=== PATIENT | female | born 1930 | race Hispanic/Latino ===

== ENCOUNTER 2020-12-09 05:28 | Observation (INO) | payer MEDICARE ==
[2020-12-09 05:53] LABS: Protime INR 1.05
[2020-12-09 05:54] LABS: Absolute Lymphocytes (CBC) 1.8 K/uL (0.7-4.9); Basophils % 1.3 % (0-1.3); Hematocrit 35.8 % (36.0-45.0); Lymphocytes % 42.6 % (15.3-44.8); MPV 8.2 fL (7.6-11.3); RBC Red Blood Cell Count 4.18 M/uL (3.86-4.86)
[2020-12-09] MEDS ORDERED: NA CHLORIDE 0.9% 1,000 ML ONE (05:59)
[2020-12-09] MEDS ORDERED: AMLODIPINE 5 MG TAB ONE ×2 (06:06→08:48)
[2020-12-09 06:07] LABS: ALT/SGPT 24 U/L (12-78); AST/SGOT 16 U/L (15-37); Albumin 3.3 g/dL (3.4-5.0); Alkaline Phosphatase 105 U/L (45-117); BUN Blood Urea Nitrogen 18 mg/dL (7-18); Bicarbonate 24 mmol/L (21-32); Bilirubin Direct 0.4 mg/dL (0-0.2); Bilirubin Total 1.3 mg/dL (0.2-1.0); Glucose Level 110 mg/dL (74-106); Magnesium 2.3 mg/dL (1.8-2.4); NT PRO-BNP 638 pg/mL (<450); Potassium 3.8 mmol/L (3.5-5.1); Protein, Total 7.3 g/dL (6.4-8.2); Sodium Level 142 mmol/L (136-145); Troponin (Emerg Dept Use Only) < 0.02 ng/mL (0.0-0.045)
--- NOTE | 2020-12-09 06:20 | ER ---
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 Coronavirus screen: Client denies travel out of the [place] in the last 14 days. Ebola Screen: Patient negative for fever greater than or equal to 101.5 degrees Fahrenheit, and additional compatible Ebola Virus Disease symptoms Patient denies exposure to infectious person. Patient denies travel to an Ebola-affected area in the 21 days before illness onset. No symptoms or risks identified at this time. Initial Sepsis Screen: Does the patient meet any 2 criteria? No. Patient's initial sepsis screen is negative. Does the patient have a suspected source of infection? No. Patient's initial sepsis screen is negative. Risk Assessment: Do you want to hurt yourself or someone else? Patient reports no desire to harm self or others. Onset of symptoms was December 09, 2020. 05:30 Method Of Arrival: EMS: [facility] em 05:30 Acuity: TE 2 em Historical: - Allergies: 05:29 Codeine; ss - Home Meds: 05:36 metoprolol tartrate 100 mg Oral tab [Active]; clonidine HCl 0.1 mg Oral tab [Active]; em - PMHx: 05:33 Hypertension; em - PSHx: 05:29 shoulder sx; Cholecystectomy; Thyroidectomy; ss - Immunization history:: Adult Immunizations up to date. - Social history:: Smoking status: Patient denies any tobacco usage or history of. Screenin:30 Abuse screen: Denies threats or abuse. Denies injuries from another. Nutritional ss screening: No deficits noted. Tuberculosis screening: Never had TB. Fall Risk None identified. Assessment: 05:30 General: Appears in no apparent distress. comfortable, Behavior is calm, cooperative, ss Denies fever, feeling ill, fatigue, chills. Pain: Complains of pain in epigastric area Pain currently is 0 out of 10 on a pain scale. at worst was 3 out of 10 on a pain scale. Neuro: Level of Consciousness is awake, alert, obeys commands, Oriented to person, place, time, situation, Belting Cutter are equal bilaterally Moves all extremities. Full function Speech is normal, Facial symmetry appears normal. Cardiovascular: Capillary refill < 3 seconds is brisk in bilateral fingers. Respiratory: Airway is patent Respiratory effort is even, unlabored, Respiratory pattern is regular, symmetrical. GI: Patient currently denies abdominal pain, diarrhea, nausea, vomiting. EENT: Nares Oral mucosa is moist. Derm: Skin is intact, is fragile, is thin, Skin is dry, Skin is pink, warm \T\ dry. normal. Musculoskeletal: Circulation, motion, and sensation intact. Range of motion: intact in all extremities. 06:25 Reassessment: Pt is aware of admission for further evaluation. Daughter and son remain ss at bedside. Call light remains within reach. Awaiting COVID results prior to receiving room assignment from manager warehouse. PT has no complaints at this time. 11:00 Reassessment: Tried to call report to 2nd floor. Room is not ready for patient yet. ld1 12:11 Reassessment: Tried to call report to 2nd floor. Room is not ready for patient yet. ld1 Vital Signs: 05:29 BP 181 / 78; Pulse 68; Resp 16; Temp 97.7(TE); Pulse Ox 98% on R/A; Weight 57.15 kg; ss Height 5 ft. 0 in. (152.40 cm); Pain 0/10; 05:30 BP 158 / 65; Pulse 57; Resp 17; Pulse Ox 100% ; Pain 0/10; ss 05:42 BP 155 / 76; Pulse 69; Resp 17; Pulse Ox 98% ; rr5 06:34 BP 158 / 76; Pulse 60; Resp 16; Pulse Ox 99% ; rr5 05:29 Body Mass Index 24.61 (57.15 kg, 152.40 cm) ED Course: 05:29 Patient arrived in ED. 05:30 Patient has correct armband on for positive identification. Placed in gown. Bed in low ss position. Call light in reach. Side rails up X2. hall monitor on. Pulse ox on. NIBP on. Warm blanket given. 05:30 Arm band placed on left wrist. rr5 05:32 Kaveh Kumar MD is Attending Physician. stacey 05:33 Triage completed. em 05:35 EKG done, by ED staff, reviewed by Kaveh Kumar MD. rr5 05:40 Inserted saline lock: 20 gauge in right forearm, using aseptic technique. Blood rr5 collected. 05:42 Manohar Munoz, RN is Primary Nurse. rr5 05:52 XRAY Chest (1 view) In Process Unspecified. EDIN 06:17 Gunnar Young MD is Hospitalizing Provider. [facility] 06:28 No provider procedures requiring assistance completed. Patient admitted, IV remains in ss place. 06:35 COVID swab sent to lab. rr5 06:50 Urine collected: clean catch specimen, clear. rr5 Administered Medications: Discontinued: NS 0.9% 1000 ml IV at 75 ml/hr continuous 05:42 Drug: NS 0.9% 1000 ml Route: IV; Rate: 75 ml/hr; Site: right forearm; rr5 06:30 Follow up: IV Status: Order to discontinue infusion ss 05:53 Drug: Norvasc (amlodipine) 5 mg Route: PO; rr5 06:38 Follow up: Response: No adverse reaction; Blood pressure is lowered rr5 06:25 Drug: Lasix (furosemide) 20 mg Route: IVP; Site: right antecubital; ss 06:38 Follow up: Response: No adverse reaction; Other; voided freely rr5 Intake: Outcome: 06:18 Decision to Hospitalize by Provider. stacey 06:28 Condition: good ss 06:28 Instructed on the need for admit. 14:11 Admitted to Med/surg accompanied by tech, via wheelchair, room 216, with chart, Report ld1 called to ROBERTA Morales 14:12 Patient left the ED. ld1 Signatures: Dispatcher [employer] Kaveh Oviedo MD MD cha Munoz, Edgar, RN RN em Smirch, Shelby, RN RN Manohar Munoz, ROBERTA RN rr5 Veronica Cesar RN RN ld1
--- NOTE | 2020-12-09 06:20 | EDPHYS ---
Physician Documentation [facility] Name: Juliane Suarez Age: 89 yrs Sex: Female : 1930 Arrival Date: 12/09/2020 Time: 05:29 Bed 6 Private MD: ED Physician Kaveh Kumar HPI: 12/09 05:42 This 89 yrs old Female presents to ER via EMS with complaints of High Blood stacey Pressure. 05:42 The patient has elevated blood pressure and discovered this at home, with a home stacey device. Onset: The symptoms/episode began/occurred just prior to arrival, this morning. Modifying factors: The symptoms are aggravated by activity, The symptoms are alleviated by remaining still. Associated signs and symptoms: Pertinent positives: dizziness, lightheadedness. Severity of symptoms: At its worst the blood pressure was moderate, in the emergency department the blood pressure is unchanged. The patient has not experienced similar symptoms in the past. Historical: - Allergies: 05:29 Codeine; ss - Home Meds: 05:36 metoprolol tartrate 100 mg Oral tab [Active]; clonidine HCl 0.1 mg Oral tab [Active]; em - PMHx: 05:33 Hypertension; em - PSHx: 05:29 shoulder sx; Cholecystectomy; Thyroidectomy; ss - Immunization history:: Adult Immunizations up to date. - Social history:: Smoking status: Patient denies any tobacco usage or history of. ROS: 05:45 Constitutional: Negative for fever, chills, and weight loss, Eyes: Negative for injury, stacey pain, redness, and discharge, ENT: Negative for injury, pain, and discharge, Neck: Negative for injury, pain, and swelling, Cardiovascular: Negative for chest pain, palpitations, and edema, Respiratory: Negative for shortness of breath, cough, wheezing, and pleuritic chest pain, Back: Negative for injury and pain, : Negative for injury, bleeding, discharge, and swelling, MS/Extremity: Negative for injury and deformity, Skin: Negative for injury, rash, and discoloration, Psych: Negative for depression, anxiety, suicide ideation, homicidal ideation, and hallucinations, Allergy/Immunology: Negative for hives, rash, and allergies, Endocrine: Negative for neck swelling, polydipsia, polyuria, polyphagia, and marked weight changes, Hematologic/Lymphatic: Negative for swollen nodes, abnormal bleeding, and unusual bruising. 05:45 Abdomen/GI: Positive for nausea. 05:45 Neuro: Positive for dizziness, weakness. Exam: 05:45 Constitutional: This is a well developed, well nourished patient who is awake, alert, stacey and in no acute distress. Head/Face: Normocephalic, atraumatic. Eyes: Pupils equal round and reactive to light, extra-ocular motions intact. Lids and lashes normal. Conjunctiva and sclera are non-icteric and not injected. Cornea within normal limits. Periorbital areas with no swelling, redness, or edema. ENT: Nares patent. No nasal discharge, no septal abnormalities noted. Tympanic membranes are normal and external auditory canals are clear. Oropharynx with no redness, swelling, or masses, exudates, or evidence of obstruction, uvula midline. Mucous membranes moist. Neck: Trachea midline, no thyromegaly or masses palpated, and no cervical lymphadenopathy. Supple, full range of motion without nuchal rigidity, or vertebral point tenderness. No Meningismus. Chest/axilla: Normal chest wall appearance and motion. Nontender with no deformity. No lesions are appreciated. Cardiovascular: Regular rate and rhythm with a normal S1 and S2. No gallops, murmurs, or rubs. Normal PMI, no JVD. No pulse deficits. Respiratory: Lungs have equal breath sounds bilaterally, clear to auscultation and percussion. No rales, rhonchi or wheezes noted. No increased work of breathing, no retractions or nasal flaring. Abdomen/GI: Soft, non-tender, with normal bowel sounds. No distension or tympany. No guarding or rebound. No evidence of tenderness throughout. Back: No spinal tenderness. No costovertebral tenderness. Full range of motion. Skin: Warm, dry with normal turgor. Normal color with no rashes, no lesions, and no evidence of cellulitis. MS/ Extremity: Pulses equal, no cyanosis. Neurovascular intact. Full, normal range of motion. Neuro: Awake and alert, GCS 15, oriented to person, place, time, and situation. Cranial nerves II-XII grossly intact. Motor strength 5/5 in all extremities. Sensory grossly intact. Cerebellar exam normal. Normal gait. Psych: Awake, alert, with orientation to person, place and time. Behavior, mood, and affect are within normal limits. 05:45 Musculoskeletal/extremity: Extremities: all appear grossly normal, with no appreciated pain with palpation, ROM: no acute changes, Circulation is intact in all extremities. Sensation intact. Compartment Syndrome exam of affected extremity: is normal. DVT Exam: No signs of deep vein thrombosis. no pain, no swelling, no tenderness, negative Homans' sign noted on exam, no appreciated bluish discoloration, no erythema, no increased warmth. 06:27 ECG was reviewed by the Attending Physician. [facility] Vital Signs: 05:29 BP 181 / 78; Pulse 68; Resp 16; Temp 97.7(TE); Pulse Ox 98% on R/A; Weight 57.15 kg; ss Height 5 ft. 0 in. (152.40 cm); Pain 0/10; 05:30 BP 158 / 65; Pulse 57; Resp 17; Pulse Ox 100% ; Pain 0/10; ss 05:42 BP 155 / 76; Pulse 69; Resp 17; Pulse Ox 98% ; rr5 06:34 BP 158 / 76; Pulse 60; Resp 16; Pulse Ox 99% ; rr5 05:29 Body Mass Index 24.61 (57.15 kg, 152.40 cm) MDM: 05:32 Patient medically screened. [facility] 05:48 Differential diagnosis: hypertensive crisis, Malignant HTN. Data reviewed: vital signs, [facility] nurses notes, lab test result(s), EKG, radiologic studies, plain films. Data interpreted: hub inventory specialist: rate is 69 beats/min, rhythm is regular, Pulse oximetry: on room air is 98 %. Test interpretation: by ED physician or midlevel provider: ECG, plain radiologic studies. Counseling: I had a detailed discussion with the patient and/or guardian regarding: the historical points, exam findings, and any diagnostic results supporting the discharge/admit diagnosis, lab results, radiology results. 12/09 05:30 Order name: Basic Metabolic Panel 12/09 05:30 Order name: CBC with Diff 12/09 05:30 Order name: LFT's; Complete Time: 06:15 12/09 05:30 Order name: Magnesium; Complete Time: 06:15 12/09 05:30 Order name: NT PRO-BNP; Complete Time: 06:15 12/09 05:30 Order name: PT-INR 12/09 05:30 Order name: Troponin (emerg Dept Use Only); Complete Time: 06:15 12/09 05:31 Order name: Basic Metabolic Panel; Complete Time: 06:15 [facility] 12/09 05:31 Order name: CBC with Automated Diff; Complete Time: 06:06 [facility] 12/09 05:34 Order name: Urine Culture [facility] 12/09 06:06 Order name: COVID-19 : Document "Date of Symptom Onset" if Symptomatic. [facility] 12/09 06:50 Order name: Urine Microscopic Only rr5 12/09 06:51 Order name: Urine Dipstick-Ancillary [facility] 12/09 07:31 Order name: Urine Microscopic Only [facility] 12/09 05:30 Order name: XRAY Chest (1 view) 12/09 05:30 Order name: EKG; Complete Time: 05:31 12/09 05:30 Order name: Cardiac monitoring; Complete Time: 05:31 12/09 05:30 Order name: EKG - Nurse/Tech; Complete Time: 05:31 12/09 05:30 Order name: IV Saline Lock; Complete Time: 05:42 12/09 05:30 Order name: Labs collected and sent; Complete Time: 05:42 12/09 05:30 Order name: O2 Per Protocol; Complete Time: 05:31 12/09 05:30 Order name: O2 Sat Monitoring; Complete Time: 05:31 12/09 05:34 Order name: Urine Dipstick-Ancillary (obtain specimen); Complete Time: 06:47 [facility] 12/09 06:23 Order name: CONS Physician Consult [facility] 12/09 07:56 Order name: SARS-COV-2 RT PCR [facility] 12/09 09:12 Order name: Troponin I EDWA EC:27 Rate is 61 beats/min. Rhythm is regular. QRS [place] is Normal. AL interval is normal. QRS stacey interval is normal. QT interval is normal. No Q waves. T waves are Normal. No ST changes noted. Clinical impression: NSR w/ Non-specific ST/T Changes and No evidence of ischemia. Interpreted by me. Reviewed by me. Administered Medications: Discontinued: NS 0.9% 1000 ml IV at 75 ml/hr continuous 05:42 Drug: NS 0.9% 1000 ml Route: IV; Rate: 75 ml/hr; Site: right forearm; rr5 06:30 Follow up: IV Status: Order to discontinue infusion ss 05:53 Drug: Norvasc (amlodipine) 5 mg Route: PO; rr5 06:38 Follow up: Response: No adverse reaction; Blood pressure is lowered rr5 06:25 Drug: Lasix (furosemide) 20 mg Route: IVP; Site: right antecubital; ss 06:38 Follow up: Response: No adverse reaction; Other; voided freely rr5 Disposition: 12/09/20 06:18 Hospitalization ordered by Gunnar Young for Observation. Preliminary diagnosis are Essential (primary) hypertension, Cardiomegaly, Systolic (congestive) heart failure, Dizziness and giddiness. - Bed requested for Telemetry/MedSurg (observation). - Status is Observation. ld1 - Condition is Fair. - Problem is new. - Symptoms have improved. Signatures: Dispatcher [employer] Kaveh Oviedo MD MD cha Munoz, Edgar, RN Gerda Hector RN RN Bijal Jimenez Raymond RN RN rr5 Veronica Cesar RN RN ld1 Corrections: (The following items were deleted from the chart) 09:26 06:18 Hospitalization Ordered by Gunnar Young MD for Observation. Preliminary eb diagnosis is Essential (primary) hypertension; Cardiomegaly; Systolic (congestive) heart failure; Dizziness and giddiness. Bed requested for Telemetry/MedSurg (observation). Status is Observation. Condition is Fair. Problem is new. Symptoms have improved. [facility] 09:33 09:26 12/09/2020 06:18 Hospitalization Ordered by Gunnar Young MD for Observation. eb Preliminary diagnosis is Essential (primary) hypertension; Cardiomegaly; Systolic (congestive) heart failure; Dizziness and giddiness. Bed requested for Telemetry/MedSurg (observation). Status is Observation. Condition is Fair. Problem is new. Symptoms have improved. 10:25 09:33 12/09/2020 06:18 Hospitalization Ordered by Gunnar Young MD for Observation. eb Preliminary diagnosis is Essential (primary) hypertension; Cardiomegaly; Systolic (congestive) heart failure; Dizziness and giddiness. Bed requested for Telemetry/MedSurg (observation). Status is Observation. Condition is Fair. Problem is new. Symptoms have improved. eb 13:59 10:25 12/09/2020 06:18 Hospitalization Ordered by Gunnar Young MD for Observation. eb Preliminary diagnosis is Essential (primary) hypertension; Cardiomegaly; Systolic (congestive) heart failure; Dizziness and giddiness. Bed requested for Telemetry/MedSurg (observation). Status is Observation. Condition is Fair. Problem is new. Symptoms have improved. eb 14:12 13:59 12/09/2020 06:18 Hospitalization Ordered by Gunnar Young MD for Observation. ld1 Preliminary diagnosis is Essential (primary) hypertension; Cardiomegaly; Systolic (congestive) heart failure; Dizziness and giddiness. Bed requested for Telemetry/MedSurg (observation). Status is Observation. Condition is Fair. Problem is new. Symptoms have improved. eb
[2020-12-09] MEDS ORDERED: FUROSEMIDE 20 MG/ 2ML VIAL ONE ×2 (06:39→08:47)
[2020-12-09 06:51] LABS: Urine Blood 1+ (Negative); Urine Glucose Negative (Negative); Urine Protein Negative (Negative)
[2020-12-09 07:30] LABS: Urine Bacteria <20 /HPF (<20); Urine RBC <5 /HPF (NONE SEEN)
[2020-12-09] MEDS ORDERED: IPRATROPIUM BROM 0.5MG/2.5ML NEB PRN (08:15)
[2020-12-09] MEDS ORDERED: ACETAMINOPHEN 500 MG TAB PO PRN (08:15)
[2020-12-09] MEDS ORDERED: ONDANSETRON 4 MG/2 ML VIAL IV PRN (08:15)
[2020-12-09] MEDS ORDERED: ALBUTEROL 2.5 MG/3 ML NEB SOL NEB PRN (08:15)
[2020-12-09] MEDS ORDERED: METOPROLOL TAR 50 MG TAB ONE (08:48)
[2020-12-09] MEDS ORDERED: METOPROLOL TAR 50 MG TAB PO SCH (09:00)
[2020-12-09] MEDS: FUROSEMIDE 20 MG/ 2ML VIAL IV SCH (09:00)
[2020-12-09] MEDS: AMLODIPINE 5 MG TAB PO SCH (09:00)
--- NOTE | 2020-12-09 09:01 | RAD REPORT ---
EXAM DESCRIPTION: [facility] Single View12/09/2020 5:52 am CLINICAL HISTORY: Chest pain COMPARISON: 2015 and 2019 FINDINGS: The lungs appear clear of acute infiltrate. The heart is mildly enlarged. 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
[2020-12-09 12:21] VITALS: BMI 27.3
[2020-12-09] MEDS ORDERED: cloNIDine HCL 0.1 MG TAB PO PRN (12:57)
[2020-12-09] MEDS ORDERED: METOPROLOL TAR 25 MG TAB PO SCH (17:30)
[2020-12-10 05:41] LABS: Absolute Lymphocytes (CBC) 1.6 K/uL (0.7-4.9); Hematocrit 35.1 % (36.0-45.0); Lymphocytes % 32.5 % (15.3-44.8); RBC Red Blood Cell Count 4.11 M/uL (3.86-4.86)
[2020-12-10 06:13] LABS: BUN Blood Urea Nitrogen 23 mg/dL (7-18); Bicarbonate 29 mmol/L (21-32); Glucose Level 99 mg/dL (74-106); NT PRO-BNP 580 pg/mL (<450); Potassium 4.2 mmol/L (3.5-5.1); Sodium Level 142 mmol/L (136-145)
--- NOTE | 2020-12-10 08:09 | RAD REPORT ---
EXAM DESCRIPTION: RAD - Chest Single View - 12/10/2020 6:19 am CLINICAL HISTORY: Chest Pain COMPARISON: Portable December 09 TECHNIQUE: AP portable chest image was obtained 12/10/2020 6:19 am . FINDINGS: Chronic interstitial opacification is present. Faint focal opacification in the right uppe r lung field persists and can be monitored on follow-up imaging. Heart size remains prominent. Centra l vasculature within normal limits. Overall interstitial opacification has improved. Heart and medias tinum are distorted by rotation. No measurable pleural effusion and no pneumothorax. No acute bony ab normality seen. No acute aortic findings suspected. IMPRESSION: Significant improvement in the interstitial infiltrate or edema pattern seen December 09. Faint right upper lobe opacification is probably summation rather than infiltrate or mass. This can b e re-evaluated on follow-up chest imaging.
[2020-12-10 08:39] VITALS: O2SAT 95
[2020-12-10] MEDS: FUROSEMIDE 20 MG/ 2ML VIAL IV SCH (08:44)
[2020-12-10] MEDS: AMLODIPINE 5 MG TAB PO SCH (08:45)
[2020-12-10 08:48] VITALS: BP 131/63
[2020-12-10 11:01] VITALS: TEMP 97.4
--- NOTE | 2020-12-11 19:28 | HP ---
Date of Admission: 12/09/2020 Entrance Complaint: Chest discomfort, high blood pressure. History Of Present Illness: The patient presented to the emergency room with the above outlined symp toms. She stated during the day she was trying to woke up and had some funny feelings, but how she d escribed it in the chest was the real pain, perhaps some pressure associated with minimal increase in dyspnea. However, she does not take her blood pressure in regular basis and when she took it, that was over 200/100. She became alarmed and presented to the emergency room. Past History: The patient has been in good health considering her age other than fluctuating blood p ressure, which has required various medication combinations over the past years. As of late, she has increase in her beta blockers, metoprolol, and was in she says good control until this episode. The shortness of breath she described is minimal, however, she did state she felt funny in her chest are a anteriorly. Family History: Noncontributory. Social History: Normal smoker. Nondrinker. Physical Examination: General: The patient is an alert, elderly female, in no acute distress. VITAL SIGNS: Stable vital signs other than her blood pressure, which was 184/94. Head and Neck: Normocephalic. Pupils are equal and reactive to light and accommodation. Fundi nega tive. Trachea midline. Thyroid not palpable. ENT negative. Chest: Clear to P and A. Cardiovascular: PMI in midclavicular line. Heart: Sounds normal. Peripheral pulses are present and equal bilaterally. Abdomen: No organomegaly. Bowel sounds present. Extremities: Good tone and movement bilaterally. Reflexes physiologic. Rectal: Deferred. Neurological: Deferred. Impression: Hypertensive episode, possible congestive heart failure. Plan: The patient will be admitted. Chest x-ray did reveal some increased markings and she was give n IV Lasix with good relief of her chest discomfort. At this time, her blood pressure is stable as w ell. She will be monitored. Medication will be adjusted accordingly. HR/MODL Voice ID: [id number]
--- NOTE | 2020-12-11 19:31 | PN ---
Date of Progress Note: 12/10/2020 The patient states she feels much better today. This was re-addition of Lasix, which was also given IV. Today, she was given p.o. on outpatient basis. The metoprolol was decreased to 25 mg and Norvas c 5 mg was added to the regimen. The patient is up and above. She stated the shortness of breath is gone, the chest area feels normal. She was therefore discharged on the above outlined changes. Mehrdad itor her blood pressure and return to clinic in 1 week. HR/MODL Voice ID: [id number] Report ID: [id number]
== END 2020-12-10 14:18 | disposition home or self-care (01) ==
LOC: ER 05:28 → ERHOLD 06:21 → 2ND 13:39
PROVIDERS: ADMIT Family Medicine; ATTEND Family Medicine
DX: I10 Essential (primary) hypertension (principal); I51.7 Cardiomegaly; R42 Dizziness and giddiness; E89.0 Postprocedural hypothyroidism; Z20.822 Contact with and (suspected) exposure to COVID-19; Z88.6 Allergy status to analgesic agent; Z90.49 Acquired absence of other specified parts of digestive tract
CPT/HCPCS: 96361; 93005; 87088; 85025 ×2; 87086; 80048 ×2; 36415 ×2; 83735; 85610; 80076; 87077; 87186; 84484 ×3; 83880 ×2; 71045 ×2; 96374; 99285; U0003; J1940 ×3; J7030; G0378 ×3; 81003; 81015